=== PATIENT | female | born 1990 | race Caucasian/White ===

== ENCOUNTER 2017-03-07 19:14 | Emergency (ER) | payer MEDICAID, OTHER ==
[~2017-03-07] VITALS: Ht 162.6 cm; Wt 67.0 kg
[~2017-03-07 19:14] MED LIST: COLE625T2 PO; PREN1TAB49 PO; URSO300C3 PO
[2017-03-07 19:18] VITALS: Ht 162.6 cm; Wt 67.0 kg
[2017-03-07] MEDS ORDERED: ACETAMINOPHEN 325 MG TAB PO STA (20:12)
[2017-03-07] MEDS ORDERED: ONDANSETRON 4 MG INJ IV STA (20:12)
[2017-03-07] MEDS ORDERED: SOD CHLORIDE 0.9% 1,000 ML IV STA (20:12)
--- NOTE | 2017-03-07 20:15 | ERD ---
ER Documentation Chief Complaint Date/Time DATE: 03/07/17 TIME: 20:10 Chief Complaint 8 weeks , pelvic pain radaditing to back today, coughx 4 days HPI This pleasant 26-year-old female presents to the emergency department today for nausea, vomiting, and diarrhea. Patient reports fever, states that she has not been able to keep any liquid or food down all day. Patient is 8 weeks , reports low pelvic pain, with cramps, denies vaginal discharge, bleeding, or dysuria. Patient reports history of miscarriages, has 1 live that was delivered early for complications. [id number] ROS All systems reviewed and are negative except as per history of present illness. Medications Home Meds Reported Medications Ursodiol* (Ursodiol*) 300 Mg Capsule, 300 MG PO 11/19/11 Colesevelam Hcl* (Welchol*) 625 Mg Tablet, 625 MG PO TID, #3 11/19/11 Vits W-Ca,Fe,Fa(<1MG) () 1 Tab Tablet, 1 TAB PO 11/19/11 Allergies Allergies: Coded Allergies: sulfamethoxazole (Verified Allergy, Unknown, 03/07/17) trimethoprim (Verified Allergy, Unknown, 03/07/17) PMhx/Soc Medical and Surgical Hx: pt denies Medical Hx, pt denies Surgical Hx Hx Alcohol Use: No Hx Substance Use: No Hx Tobacco Use: No Physical Exam Vitals Vital Signs Date Time Temp Pulse Resp B/P Pulse Ox O2 Delivery O2 Flow Rate FiO2 03/07/17 19:18 101.9 131 20 141/86 98 Physical Exam Const: No acute distress Head: Atraumatic Eyes: Normal Conjunctiva, PERRLA, EOMI ENT: Normal External Ears, Nose and Mouth. Neck: Full range of motion Resp: Chest rise and fall symmetrically, clear to auscultation bilaterally, no respiratory distress Cardio: Regular rate and rhythm, no murmurs, S1, S2, no S3, S4 Abd: Soft, non tender, non distended. Normal bowel sounds, right CVA Skin: Back: Right flank tenderness Ext: Neur: Awake and alert Psych: Normal Mood and Affect Result Diagram: 03/07/172117 Results 24 hrs Laboratory Tests Test 03/07/17 21:18 03/07/17 21:20 White Blood Count 11.710^3/ul Red Blood Count 5.0910^6/ul Hemoglobin 15.1g/dl Hematocrit 44.6% Mean Corpuscular Volume 87.6fl Mean Corpuscular Hemoglobin 29.7pg Mean Corpuscular Hemoglobin Concent 33.9g/dl Red Cell Distribution Width 13.5% Platelet Count 56344^3/UL Mean Platelet Volume 11.1fl Neutrophils % 88.5% Lymphocytes % 6.8% Monocytes % 4.3% Eosinophils % 0.0% Basophils % 0.1% Nucleated Red Blood Cells % 0.0/100WBC Neutrophils # 10.410^3/ul Lymphocytes # 0.810^3/ul Monocytes # 0.510^3/ul Eosinophils # 0.010^3/ul Basophils # 0.010^3/ul Nucleated Red Blood Cells # 0.010^3/ul Urine Color LT. YELLOW Urine Clarity CLEAR Urine pH 6.0 Urine Specific [place] <=1.005 Urine Ketones 15 Urine Nitrite NEGATIVE Urine Bilirubin NEGATIVE Urine Urobilinogen 0.2 E.U./dL Urine Leukocyte Esterase NEGATIVE Urine Hemoglobin NEGATIVE Urine Glucose NEGATIVE% Urine Total Protein NEGATIVE Current Medications Medications (Trade) Dose Ordered Sig/Mika Route PRN Reason Start Time Stop Time Status Last Admin Dose Admin Sodium Chloride (NS) 1,000 ml @ 1,000 mls/hr Q1H STAT IV 03/07/17 20:12 03/07/17 21:11 DC 03/07/17 20:50 Acetaminophen (Tylenol Tab) 650 mg ONCE STAT PO 03/07/17 20:12 03/07/17 20:16 DC 03/07/17 20:49 Ondansetron HCl (Zofran Inj) 4 mg ONCE STAT IV 03/07/17 20:12 03/07/17 20:16 DC 03/07/17 20:49 Interpretation text CBC shows no evidence of hemorrhage or acute infection Urinalysis without leukocytosis, nitrates, or microscopic hematuria Procedures/MDM PROCEDURE: US OB. CLINICAL INDICATION: Pelvic pain in a 26-year-old female. TECHNIQUE: Transabdominal and transvaginal views of the pelvis are available for review. COMPARISON: No. FINDINGS: The uterus measures 13.2 cm sagittal by 6.6 cm AP by 7.6 cm transverse. Uterus contains a gestational sac. The mean sac diameter is 2 cm which calculates out to 6 weeks 6 days. Placenta: Circumferential. The yolk sac is identified.. Presentation: Mobile. [place]-rump length: The crown-rump length is 1.0 cm: 7 weeks 1 day. heart rate: 168 beats per minute. Amniotic fluid volume: Normal. Ultrasound estimated gestational age: The left ovary measures 3.6 x 2.3 x 3.7 cm with normal blood flow. The right ovary measures 4 x 2.7 x 3.6 cm and is normal blood flow and Doppler imaging. No ovarian or adnexal mass lesion is seen. There is no free fluid. IMPRESSION: 1. A single viable fetus is identified. AUA: 7 weeks 0 days was are -3 days.. 2. CHICO (AUA): October 24, 2017. 3. No abnormal adnexal mass is identified. 3. The ovaries are normal. Physician Eliezer Date Time Electronically viewed and signed by Gumaro Ordaz Physician on 03/07/2017 20:48 This pleasant 26-year-old female presenting to emergency department today with nausea, fever, and abdominal pain, without vaginal bleeding. Patient is a weeks , differential diagnosis includes but not limited to threatened miscarriage, urinary tract infection, pyelonephritis. Urinalysis negative for evidence of infection, no leukocytosis or nitrates, WBC is mildly elevated at 11.7 this is not an abnormal finding in no acute infection is suspected. Transabdominal ultrasound impression single viable fetus is identified a UA; 7 weeks 0 days. Estimated due date October 24, 2017. No abnormal adnexal mass is identified. The ovaries are normal. She treated with a liter of normal saline, Zofran, and Tylenol in emergency department, is able to pass fluid challenge prior to discharge. Patient will be discharged home with Zofran, Tylenol, and teaching. Likely viral gastroenteritis. Increase fluids, increase rest, return to emergency department for abdominal pain, abdominal bleeding, inability to tolerate food or fluid. I feel the patient is stable for discharge at this time and outpatient management by primary care physician. I have discussed results, examination findings, the treatment plan with the patient and family present prior to discharge. Indications for emergent reevaluation, side effects of medication were also discussed. All questions were answered. Patient verbalizes understanding and agrees with plan of care. Departure Diagnosis: Primary Impression: Nausea and vomiting in Additional Impression: Diarrhea Diarrhea type: unspecified type Qualified Code: R19.7 - Diarrhea, unspecified type Condition: Good Patient Instructions: Self-Care for Vomiting and Diarrhea Additional Instructions: Thank you for for coming to [facility] for your care today. Please ask your nurse or provider if you have questions about your care today and do not leave until all your questions have been answered. Please use any medications given as directed and follow-up with your doctor (or the doctor you were referred to) in the next 2-3 days. If you do not have a primary care doctor you may follow up at the [facility] (listed below). You may also use motrin and tylenol as needed for fever and/or pain unless instructed otherwise by your provider or nurse. Indications for more urgent follow-up have been discussed, but you may return to the Emergency Department at ANY time for any worrisome or worsening symptoms. If you have abdominal pain, please know that no test or exam you received is perfect and you should follow up within 8 hours for continued pain. If you had any imaging studies today, such as an X-Ray or CT Scan, these studies will be reviewed later by a radiologist. You will be called if there are important findings that were not identified today, so make sure the contact information you provided at registration is correct. If you received any narcotic pain control medicine today, such as Vicodin, Morphine or Dilaudid, your coordination and judgment may be affected for a number of hours. Please do not drive or operate heavy machinery, and you may want someone to assist you at home. If you were given a prescription for narcotic medication, be aware that it is very addictive- use sparingly and only if necessary. MELI RUSS March 07, 2017 20:15
--- NOTE | 2017-03-07 20:48 | RADRPT ---
PROCEDURE: US OB. CLINICAL INDICATION: Pelvic pain in a 26-year-old female. TECHNIQUE: Transabdominal and transvaginal views of the pelvis are available for review. COMPARISON: No. FINDINGS: The uterus measures 13.2 cm sagittal by 6.6 cm AP by 7.6 cm transverse. Uterus contains a gestation al sac. The mean sac diameter is 2 cm which calculates out to 6 weeks 6 days. Placenta: Circumferential. The yolk sac is identified.. Presentation:Mobile. [place]-rump length:The crown-rump length is 1.0 cm: 7 weeks 1 day. heart rate:168 beats per minute. Amniotic fluid volume: Normal. Ultrasound estimated gestational age: The left ovary measures 3.6 x 2.3 x 3.7 cm with normal blood flow. The right ovary measures 4 x 2.7 x 3.6 cm and is normal blood flow and Doppler imaging. No ovarian or adnexal mass lesion is seen. There is no free fluid. IMPRESSION: 1. A single viable fetus is identified. AUA: 7 weeks 0 days was are -3 days.. 2. CHICO (AUA): October 24, 2017. 3. No abnormal adnexal mass is identified. 3. The ovaries are normal. RPTAT:AAJJ Physician Eliezer Date Time Electronically viewed and signed by Physician Eliezer on 03/07/2017 20:48 ARIES/
[2017-03-07 22:04] LABS: ADD SCAN DIFF NO
[2017-03-07 22:06] LABS: BASOPHILS % 0.1 % (0.0-2.0); HEMATOCRIT 44.6 % (37.0-47.0); HEMOGLOBIN 15.1 g/dl (12.0-16.0); LYMPHOCYTES # 0.8 10^3/ul (0.8-2.9); LYMPHOCYTES % 6.8 % (15.0-51.0); MEAN CORPUSCULAR HEMOGLOBIN 29.7 pg (29.0-33.0); MEAN CORPUSCULAR HGB CONC 33.9 g/dl (32.0-37.0); MEAN CORPUSCULAR VOLUME 87.6 fl (82.0-101.0); MEAN PLATELET VOLUME 11.1 fl (7.4-10.4); MONOCYTE # 0.5 10^3/ul (0.3-0.9); MONOCYTES % 4.3 % (0.0-11.0); NEUTROPHIL # 10.4 10^3/ul (1.6-7.5); NEUTROPHILS % 88.5 % (39.0-77.0); PLATELET COUNT 242 10^3/UL (140-415); RED BLOOD COUNT 5.09 10^6/ul (4.20-5.40); RED CELL DISTRIBUTION WIDTH 13.5 % (11.5-14.5); WHITE BLOOD COUNT 11.7 10^3/ul (4.8-10.8)
[2017-03-07 22:11] LABS: ADD UMIC NO; URINE BILIRUBIN (Dip) NEGATIVE (NEGATIVE); URINE BLOOD (Dip) NEGATIVE (NEGATIVE); URINE COLOR LT. YELLOW (YELLOW); URINE GLUCOSE (Dip) NEGATIVE (NEGATIVE); URINE KETONES (Dip) 15 (NEGATIVE); URINE LEUKOCYTE ESTERASE (Dip) NEGATIVE (NEGATIVE); URINE NITRITE (Dip) NEGATIVE (NEGATIVE); URINE TOTAL PROTEIN (Dip) NEGATIVE (NEGATIVE); URINE UROBILINOGEN (Dip) 0.2 E.U./dL (0.1-1.0)
[2017-03-07] MEDS ORDERED: ONDA4TAB8 PO (22:27)
[2017-03-07 22:51] VITALS: BP 108/58; PULSE 96; RESP 20
== END 2017-03-07 22:53 | disposition home or self-care (01) ==
LOC: FTE 19:14
DX: O21.9 Vomiting of pregnancy, unspecified (principal); O99.89 Other specified diseases and conditions complicating pregnancy, childbirth and the puerperium; R19.7 Diarrhea, unspecified; R10.2 Pelvic and perineal pain; Z3A.01 Less than 8 weeks gestation of pregnancy
CPT/HCPCS: 36415; 76801; 81003; 85025; 96374; J2405; J7030; Z7502; Z7610

== ENCOUNTER 2017-04-18 14:35 | Emergency (ER) | payer OTHER ==
[~2017-04-18] VITALS: Ht 170.2 cm; Wt 91.5 kg
[~2017-04-18 14:35] MED LIST changes: +ONDA4TAB8 PO
[2017-04-18 14:39] VITALS: Ht 170.2 cm; Wt 91.5 kg
--- NOTE | 2017-04-18 15:13 | RADRPT ---
PROCEDURE: US OB. CLINICAL INDICATION: Vaginal bleeding TECHNIQUE: Transabdominal views of the pelvis are available for review. COMPARISON: No prior studies are available for comparison. FINDINGS: There is a single intrauterine gestation with the crown-rump length measuring 7.8 cm, corresponding to a gestational age of 13 weeks and 6 days. The heart rate is noted at 150 bpm. The placenta is right lateral. There is no evidence of placenta previa or abruption. The right ovary was not seen. The left ovary measures 2.7 x 2.1 x 2.2 cm. There is no free fluid. RPTAT: AA IMPRESSION: Single live intrauterine with an estimated gestational age of 13 weeks and 6 days, based o n ultrasound measurements. CHICO based on ultrasound measurements is 10/18/17. .Malachi Sandoval MD, Date Time Electronically viewed and signed by .Malachi Sandoval MD, MD on 04/18/2017 15:13 .S/
[2017-04-18 16:13] LABS: ADD SCAN DIFF NO
[2017-04-18 16:17] LABS: BASOPHILS % 0.2 % (0.0-2.0); EOSINOPHILS # 0.1 10^3/ul (0.0-0.5); EOSINOPHILS % 1.2 % (0.0-7.0); HEMATOCRIT 38.8 % (37.0-47.0); HEMOGLOBIN 13.4 g/dl (12.0-16.0); LYMPHOCYTES # 1.4 10^3/ul (0.8-2.9); LYMPHOCYTES % 15.9 % (15.0-51.0); MEAN CORPUSCULAR HEMOGLOBIN 29.8 pg (29.0-33.0); MEAN CORPUSCULAR HGB CONC 34.5 g/dl (32.0-37.0); MEAN CORPUSCULAR VOLUME 86.2 fl (82.0-101.0); MEAN PLATELET VOLUME 9.9 fl (7.4-10.4); MONOCYTE # 0.6 10^3/ul (0.3-0.9); MONOCYTES % 6.2 % (0.0-11.0); NEUTROPHIL # 6.8 10^3/ul (1.6-7.5); NEUTROPHILS % 76.1 % (39.0-77.0); PLATELET COUNT 264 10^3/UL (140-415); RED CELL DISTRIBUTION WIDTH 14.2 % (11.5-14.5)
[2017-04-18 16:29] LABS: ADD UMIC YES; UR ASCORBIC ACID 40 mg/dL (NEGATIVE); UR BILIRUBIN (Dip) NEGATIVE (NEGATIVE); UR BLOOD (Dip) NEGATIVE (NEGATIVE); UR CLARITY SLIGHTLY CLOUDY (CLEAR); UR COLOR YELLOW (YELLOW); UR GLUCOSE (Dip) NEGATIVE (NEGATIVE); UR KETONES (Dip) NEGATIVE (NEGATIVE); UR LEUKOCYTE ESTERASE (Dip) TRACE Leu/ul (NEGATIVE); UR MUCUS FEW /HPF (NONE SEEN); UR NITRITE (Dip) NEGATIVE (NEGATIVE); UR RBC 2 /HPF (0-5); UR SPECIFIC GRAVITY (Dip) 1.029 (1.003-1.030); UR SQUAMOUS EPITHELIAL CELL MODERATE /HPF (FEW); UR TOTAL PROTEIN (Dip) NEGATIVE (NEGATIVE); UR UROBILINOGEN (Dip) NEGATIVE (NEGATIVE)
--- NOTE | 2017-04-18 17:06 | ERD ---
ER Documentation Chief Complaint Date/Time DATE: 04/18/17 TIME: 17:04 Chief Complaint vaginal bleeding x this am denies pain 13 weeks HPI This 26-year-old feel complains of some vaginal spotting since this morning. She denies any fevers, vomited she's had some possibly some very mild crampy pain. She denies a dysuria. ROS All systems reviewed and are negative except as per history of present illness. Medications Home Meds Active Scripts Ondansetron Hcl* (Zofran*) 4 Mg Tablet, 4 MG PO Q6H for NAUSEA AND/OR VOMITING, #12 TAB Prov:PETRONAMELI 03/07/17 Reported Medications Ursodiol* (Ursodiol*) 300 Mg Capsule, 300 MG PO 11/19/11 Colesevelam Hcl* (Welchol*) 625 Mg Tablet, 625 MG PO TID, #3 11/19/11 Vits W-Ca,Fe,Fa(<1MG) () 1 Tab Tablet, 1 TAB PO 11/19/11 Allergies Allergies: Coded Allergies: sulfamethoxazole (Verified Allergy, Unknown, 04/18/17) trimethoprim (Verified Allergy, Unknown, 03/07/17) PMhx/Soc Medical and Surgical Hx: pt denies Medical Hx, pt denies Surgical Hx History of Surgery: No Anesthesia Reaction: No Hx Neurological Disorder: No Hx Respiratory Disorders: No Hx Cardiac Disorders: No Hx Psychiatric Problems: No Hx Alcohol Use: No Hx Substance Use: No Hx Tobacco Use: No Smoking Status: Never smoker Physical Exam Vitals Vital Signs Date Time Temp Pulse Resp B/P Pulse Ox O2 Delivery O2 Flow Rate FiO2 04/18/17 14:39 99.2 99 18 132/78 97 Physical Exam Const: [] Alert, not ill-appearing. Head: Atraumatic Eyes: Normal Conjunctiva ENT: Normal External Ears, Nose and Mouth. Neck: Full range of motion..~ No meningismus. Resp: Clear to auscultation bilaterally Cardio: Regular rate and rhythm, no murmurs Abd: Soft, non tender, non distended. Normal bowel sounds Skin: No petechiae or rashes Back: No midline or flank tenderness Ext: No cyanosis, or edema Neur: Awake and alert Psych: Normal Mood and Affect Result Diagram: 04/18/17 1600 Results 24 hrs Laboratory Tests Test 04/18/17 15:45 04/18/17 16:00 Urine Color YELLOW Urine Clarity SLIGHTLY CLOUDY Urine pH 6.0 Urine Specific [place] 1.029 Urine Ketones NEGATIVEmg/dL Urine Nitrite NEGATIVEmg/dL Urine Bilirubin NEGATIVEmg/dL Urine Urobilinogen NEGATIVEmg/dL Urine Leukocyte Esterase TRACELeu/ul Urine Microscopic RBC 2/HPF Urine Microscopic WBC 7/HPF Urine Squamous Epithelial Cells MODERATE/HPF Urine Mucus FEW/HPF Urine Hemoglobin NEGATIVEmg/dL Urine Glucose NEGATIVEmg/dL Urine Total Protein NEGATIVEmg/dl White Blood Count 9.010^3/ul Red Blood Count 4.5010^6/ul Hemoglobin 13.4g/dl Hematocrit 38.8% Mean Corpuscular Volume 86.2fl Mean Corpuscular Hemoglobin 29.8pg Mean Corpuscular Hemoglobin Concent 34.5g/dl Red Cell Distribution Width 14.2% Platelet Count 07885^3/UL Mean Platelet Volume 9.9fl Neutrophils % 76.1% Lymphocytes % 15.9% Monocytes % 6.2% Eosinophils % 1.2% Basophils % 0.2% Nucleated Red Blood Cells % 0.0/100WBC Neutrophils # 6.810^3/ul Lymphocytes # 1.410^3/ul Monocytes # 0.610^3/ul Eosinophils # 0.110^3/ul Basophils # 0.010^3/ul Nucleated Red Blood Cells # 0.010^3/ul Procedures/MDM Pelvic ultrasound shows 13 week intrauterine possibly a heart tones with no acute abnormalities. Urine shows positive leukocyte esterase and 10 white blood cells but many squamous epithelial cells. Patient is Rh+. Patient presents with vaginal spotting for one day without evidence of ectopic , septic , sepsis, acute abdomen, signs of appendicitis. We will defer treatment for UTI given absences of symptoms. Patient discharged home with OB and primary care follow-up. The patient was stable with no new complaints during the ER course. Clinically, there is no current evidence to suggest meningitis, sepsis, acute abdomen, pneumonia, acute coronary syndrome, pulmonary embolism, or any other emergent condition appearing to require further evaluation or hospitalization. The patient should certainly return for any new or worsening symptoms per the aftercare instructions. They should otherwise follow-up with her primary care doctor for reevaluation this week. Departure Diagnosis: Primary Impression: Vaginal bleeding in patient at less than 20 weeks ges... Condition: Stable Patient Instructions: Bleeding During Early Additional Instructions: Examinations normal today. Recheck with primary doctor or return for worsening pain, fevers, bleeding, new or worsening symptoms. CHICO URBIO MD Apr 18, 2017 17:06
== END 2017-04-18 17:24 | disposition home or self-care (01) ==
LOC: FTE 14:35
DX: O20.9 Hemorrhage in early pregnancy, unspecified (principal); Z3A.13 13 weeks gestation of pregnancy
CPT/HCPCS: 36415; 76801; 81001; 84702; 85025; 86900; 86901; Z7502

== ENCOUNTER 2017-08-06 17:04 | Outpatient (CLI) | payer OTHER ==
[~2017-08-06] VITALS: Ht 170.2 cm; Wt 96.7 kg
--- NOTE | 2017-08-06 17:24 | RADRPT ---
PROCEDURE: Obstetrical ultrasound for biophysical profile CLINICAL INDICATION: Biophysical profile. . TECHNIQUE: Obstetrical ultrasound of the uterus for biophysical profile. Transabdominal views are obtained. COMPARISON: 06/17/2017 FINDINGS: Single intrauterine gestation. Presentation: Cephalic. Placenta: Posterior No evidence of placental abruption. No evidence of placenta previa. breathing movement = 2/2 tone = 2/2 motion = 2/2 RELL = 2/2 RELL = 13.0 cm heart rate: 152 beats per minute IMPRESSION: Single intrauterine gestation. Biophysical profile 05/20 RPTAT: AADD .Yang Jones MD, MD Date Time Electronically viewed and signed by .Yang Jones MD, on 08/06/2017 17:23 .B/
[2017-08-06 17:37] VITALS: BP 118/61; PULSE 78; RESP 18; Ht 170.2 cm; Wt 96.7 kg
--- NOTE | 2017-08-06 17:53 | PN ---
Triage Information Date/Time August 06, 2017 Reason for visit: DFM (17 at 29 weeks with decreased movement) Weeks of Gestation 29 week /Para 4 para 1 History of demise at 36 weeks Diabetes: none Hypertention: none Additional information Sent him because of decreased movement at 29 weeks She has history of demise at 36 weeks Objective Vital Signs Date Time Temp Pulse Resp B/P Pulse Ox O2 Delivery O2 Flow Rate FiO2 08/06/17 17:37 98.6 78 18 118/61 Room Air Heart Rate: 140's Heart Rate Comments Reactive Contractions: None Exam Deferred Results/Medications Imaging Results Single intrauterine gestation. Biophysical profile 05/20 Disposition: Discharge Assessment/Plan Home with kick counts recommendations Will start antepartum testing at 32 weeks SHANTELL NARANJO MD Aug 06, 2017 17:53
--- NOTE | 2017-08-06 18:19 | TRIAGE ---
OB Triage Datetime Report Generated by CPN: 08/06/2017 18:19 Datetime: 08/06/2017 18:00 Stage of : OB Triage Maternal Assessment Level of Consciousness: Fully Conscious Labor Evaluation Frequency: NONE Monitor Mode: External Resting Tone [place]: Relaxed Heart Rate FHR Baseline Rate: 135 Monitor Mode: External US Variability: Moderate 6-25 bpm Accelerations: 15X15 Decelerations: None Category: Category I Pain Assessment Pain Scale: 0 Pain Goal: 3 Vaginal Exam Membrane Status: Intact Vaginal Bleeding: None Datetime: 08/06/2017 17:34 Assessment Type: Triage Maternal Assessment Level of Consciousness: Fully Conscious DTR's/Clonus: DTRs 2+; No Clonus Headache: Denies Blurred Vision: No Respiratory Effort: Unlabored; Regular Rhythm; Equal Expansion Breath Sounds, Left: Clear and Equal Breath Sounds, Right: Clear and Equal Nausea/Vomiting: Denies RUQ Epigastric Pain: Denies Lower Extremities Edema: None Degree: None Upper Extremities Edema: None Degree: None Facial Edema: None Fall Risk Assessment History of Falling: (0) No Secondary Diagnosis: (0) No Ambulatory Aid: (0) Bedrest/Nurse Assist IV Therapy: (0) No Gait: (0) Normal/Bedrest/Immobile Mental Status: (0) Oriented to Own Ability Fall Score: 0 Fall Risk Score Definition: No Risk: No action required Datetime: 08/06/2017 17:30 Time of Arrival: 08/06/2017 16:49 EGA: 29.0 Arrived By: Ambulatory Arrived From: Home Chief Complaint: C/O DFM Movement: Present Contractions: Denies/Absent Rupture of Membranes: Denies Vaginal Bleeding: None Vaginal Discharge: Denies Recent Sexual Intercouse: Denies Abdominal Trauma: Not Applicable Patient Complaints: None Time Provider Notified: 08/06/2017 17:30 Provider Notified: REFUGIO Initial Plan: NST/BPP Datetime: 08/06/2017 17:07 Monitor Mode: External Monitor Mode: External US
== END 2017-08-06 18:10 | disposition home or self-care (01) ==
LOC: OBT 17:04 → L-D 17:05 → OBT 18:10
PROVIDERS: ATTEND Obstetrics & Gynecology
DX: O36.8130 Decreased fetal movements, third trimester, not applicable or unspecified (principal); Z3A.29 29 weeks gestation of pregnancy
CPT/HCPCS: 76818; Z7500; G0463

== ENCOUNTER 2017-09-03 17:30 | Outpatient (CLI) | payer OTHER ==
[~2017-09-03] VITALS: Ht 170.2 cm; Wt 98.6 kg
[~2017-09-03 17:30] MED LIST changes: -COLE625T2 PO; -ONDA4TAB8 PO; -URSO300C3 PO
[2017-09-03 18:21] VITALS: Ht 170.2 cm; Wt 98.6 kg
[2017-09-03 19:09] LABS: ADD UMIC YES; UR ASCORBIC ACID NEGATIVE (NEGATIVE); UR BILIRUBIN (Dip) NEGATIVE (NEGATIVE); UR BLOOD (Dip) 2+ mg/dL (NEGATIVE); UR CLARITY SLIGHTLY CLOUDY (CLEAR); UR COLOR YELLOW (YELLOW); UR GLUCOSE (Dip) NEGATIVE (NEGATIVE); UR KETONES (Dip) NEGATIVE (NEGATIVE); UR LEUKOCYTE ESTERASE (Dip) 1+ Leu/ul (NEGATIVE); UR NITRITE (Dip) NEGATIVE (NEGATIVE); UR RBC 1 /HPF (0-5); UR SPECIFIC GRAVITY (Dip) 1.017 (1.003-1.030); UR SQUAMOUS EPITHELIAL CELL MODERATE /HPF (FEW); UR TOTAL PROTEIN (Dip) NEGATIVE (NEGATIVE); UR UROBILINOGEN (Dip) NEGATIVE (NEGATIVE)
--- NOTE | 2017-09-03 19:46 | RADRPT ---
PROCEDURE: US OB. CLINICAL INDICATION: Decreased movement TECHNIQUE: Pelvic ultrasound performed for biophysical profile. COMPARISON: 08/06/2017 FINDINGS: Single intrauterine gestation present with heart rate at 112 beats per minute. Presentation is ceph alic. Placenta is posterior, grade I. Biophysical profile score is 8/8 (breathing=2, movement=2, t one =2, fluid volume=2). Amniotic fluid volume is within normal limits, with RELL = 9.2 cm. RPTAT:HJJR IMPRESSION: 1. Biophysical profile score 8/8. 3. Amniotic fluid index now estimated at 9.2 cm, previously 13.1 cm on the study of 08/06/2017. Physician Eveline Date Time Electronically viewed and signed by Ignacio Sauceda Physician on 09/03/2017 19:45 JR/
--- NOTE | 2017-09-03 20:29 | TRIAGE ---
OB Triage Datetime Report Generated by CPN: 09/03/2017 20:29 Datetime: 09/03/2017 20:27 Stage of : OB Triage Datetime: 09/03/2017 20:21 Labor Evaluation Frequency: 0 Monitor Mode: External Duration (sec)2399: 0 Pattern: Normal: <= 5 Contractions in 10 Minutes Heart Rate FHR Baseline Rate: 120 Monitor Mode: External US FHR Baseline Changes: No Baseline Change Variability: Moderate 6-25 bpm Decelerations: Variable Datetime: 09/03/2017 19:42 Stage of : OB Triage Maternal Assessment Level of Consciousness: Fully Conscious Headache: Denies Blurred Vision: No Respiratory Effort: Unlabored; Regular Rhythm; Equal Expansion Nausea/Vomiting: Denies RUQ Epigastric Pain: Denies Facial Edema: None Fall Risk Assessment History of Falling: (0) No Secondary Diagnosis: (0) No Ambulatory Aid: (0) Bedrest/Nurse Assist IV Therapy: (0) No Gait: (0) Normal/Bedrest/Immobile Mental Status: (0) Oriented to Own Ability Fall Score: 0 Fall Risk Score Definition: No Risk: No action required Datetime: 09/03/2017 19:00 Labor Evaluation Frequency: OCC Monitor Mode: External Quality: Mild Pattern: Normal: <= 5 Contractions in 10 Minutes Resting Tone [place]: Relaxed Heart Rate FHR Baseline Rate: 135 Monitor Mode: External US FHR Baseline Changes: No Baseline Change Variability: Moderate 6-25 bpm Accelerations: 15X15 Decelerations: None Category: Category I Pain Assessment Pain Presence: None/Denies Datetime: 09/03/2017 18:10 Monitor Mode: External Resting Tone [place]: Relaxed Heart Rate FHR Baseline Rate: 130 Monitor Mode: External US FHR Baseline Changes: No Baseline Change Variability: Moderate 6-25 bpm Accelerations: 15X15 Decelerations: None Category: Category I Pain Assessment Pain Presence: None/Denies Datetime: 09/03/2017 17:30 Assessment Type: Triage Maternal Assessment Level of Consciousness: Fully Conscious DTR's/Clonus: DTRs 2+; No Clonus Headache: Denies Blurred Vision: No Respiratory Effort: Unlabored; Regular Rhythm; Equal Expansion Breath Sounds, Left: Clear and Equal Breath Sounds, Right: Clear and Equal Nausea/Vomiting: Denies RUQ Epigastric Pain: Denies Lower Extremities Edema: Bilateral Lower Extremities Degree: 1+ Upper Extremities Edema: None Degree: None Facial Edema: None Fall Risk Assessment History of Falling: (0) No Secondary Diagnosis: (0) No Ambulatory Aid: (0) Bedrest/Nurse Assist IV Therapy: (0) No Gait: (0) Normal/Bedrest/Immobile Mental Status: (0) Oriented to Own Ability Fall Score: 0 Fall Risk Score Definition: No Risk: No action required Datetime: 09/03/2017 09:06 Time of Arrival: 09/03/2017 17:17 EGA: 33.0 Arrived By: Ambulatory Arrived From: Office Chief Complaint: light red bleeding when wiping after using BR Movement: Present Contractions: Denies/Absent Rupture of Membranes: Denies Vaginal Bleeding: Normal Show Vaginal Discharge: Present Recent Sexual Intercouse: Denies Abdominal Trauma: Not Applicable Patient Complaints: Other Time Provider Notified: 09/03/2017 18:05 Provider Notified: Ze Initial Plan: NST, BPP/RELL, Speculum exam, UA, Urine Culture Datetime: 08/06/2017 17:34 Fall Score: 0 Fall Risk Score Definition: No Risk: No action required Datetime: 08/06/2017 17:30 EGA: 29.0
--- NOTE | 2017-09-03 21:25 | PN ---
Triage Information Date/Time Reason for visit: Weeks of Gestation 33 weeks /Para Diabetes: none Hypertention: none Additional information Patient Name: Rosalia Cavazos Unit Number: [id number] Date of : 1990 Patient Status: Registered Recurring Attending Doctor: Rachael Aguero MD OB Triage Triage Information Date/Time September 03, 2017 Reason for visit: Weeks of Gestation 33 weeks /Para 4 para 1 Diabetes: none Hypertention: none Additional information 26-year-old with IUP at 33 weeks presented with complaint of urinary frequency and scant spotting and bleeding after urination when she wipes herself. She denies any nausea vomiting, fever or chills, reports has feeling some dry vagina and urinary frequency. Denies any decreased movement, uterine contractions. Objective Heart Rate: 130's Heart Rate Comments Category 1 Contractions: None Exam General appearance: Alert and oriented 4. Does not appear to be in any acute distress Abdomen: Soft, gravid, fundal height consistent with gestational age. No abdominal tenderness, no rebound tenderness, no guarding no rigidity No suprapubic tenderness Speculum examination: Cervix appears to be closed and long. No blood in the vault. Results/Medications Imaging Results PROCEDURE: US OB. CLINICAL INDICATION: Decreased movement TECHNIQUE: Pelvic ultrasound performed for biophysical profile. COMPARISON: 08/06/2017 FINDINGS: Single intrauterine gestation present with heart rate at 112 beats per minute. Presentation is cephalic. Placenta is posterior, grade I. Biophysical profile score is 8/8 (breathing=2, movement=2, tone =2, fluid volume=2). Amniotic fluid volume is within normal limits, with RELL = 9.2 cm. RPTAT:HJJR IMPRESSION: 1. Biophysical profile score 8/8. 3. Amniotic fluid index now estimated at 9.2 cm, previously 13.1 cm on the study of 08/06/2017. Disposition: Discharge Assessment/Plan IUP at 33 weeks Urinary frequency and bleeding after urination UA consistent with UTI No evidence of labor or PPROM or Pyelo Results discussed with the patient Urine was sent for culture and sensitivity The patient regarding antibiotics for 7 days. Efflux prescribed 4 times daily 500 mg Follow-up with OB clinic within 24-48 hours Adequate p.o. hydration Patient verbalized understanding plan of care Copies To: Copies To: KONSTANTIN HALL MD Sep 03, 2017 21:09 Results/Medications Results 24 hrs Laboratory Tests Test 09/03/17 18:15 Urine Color YELLOW Urine Clarity SLIGHTLY CLOUDY A Urine pH 5.0 Urine Specific [place] 1.017 Urine Ketones NEGATIVE Urine Nitrite NEGATIVE Urine Bilirubin NEGATIVE Urine Urobilinogen NEGATIVE Urine Leukocyte Esterase 1+ H Urine Microscopic RBC 1 Urine Microscopic WBC 8 H Urine Squamous Epithelial Cells MODERATE Urine Hemoglobin 2+ H Urine Glucose NEGATIVE Urine Total Protein NEGATIVE KONSTANTIN HALL MD Sep 03, 2017 21:25
== END 2017-09-03 20:30 | disposition home or self-care (01) ==
LOC: OBT 17:30 → L-D 17:32 → OBT 20:30
PROVIDERS: ATTEND Obstetrics & Gynecology
DX: O23.43 Unspecified infection of urinary tract in pregnancy, third trimester (principal); O46.93 Antepartum hemorrhage, unspecified, third trimester; Z3A.33 33 weeks gestation of pregnancy
CPT/HCPCS: 76818; 81001; 87086; G0463

== ENCOUNTER 2017-09-26 17:13 | Outpatient (CLI) | payer OTHER ==
[~2017-09-26] VITALS: Ht 170.2 cm; Wt 99.1 kg
[2017-09-26 17:22] VITALS: BP 116/67; RESP 18; Ht 170.2 cm; Wt 99.1 kg
--- NOTE | 2017-09-26 18:09 | RADRPT ---
PROCEDURE: OB ultrasound CLINICAL INDICATION: Increase bile acids TECHNIQUE: Multiple transverse and longitudinal OB images of the pelvis were obtained. The images were reviewed on a high-resolution PACS workstation. COMPARISON: 08/06/2017 FINDINGS: A single live intrauterine is seen. The presentation is vertex. The placenta is grade 1-2 and fundal in location. No evidence of placenta abruption or previa is seen. The heart rate i s 138 beats per minute. The amniotic fluid index is 11.7 cm. movement 2 tone 2 breathing 2 Amniotic fluid 2 IMPRESSION: Biophysical profile of 05/20. RPTAT: HPNM Physician Gwendolyn Date Time Electronically viewed and signed by Physician Gwendolyn on 09/26/2017 18:09 /
--- NOTE | 2017-09-26 18:22 | PN ---
Triage Information Date/Time September 26, 2017 Reason for visit: Sent from clinic for daily nondistressed test and biophysical profile until 37 weeks because of cholestasis Weeks of Gestation 36 weeks plus /Para 3 para 1 Diabetes: none Hypertention: none Objective Vital Signs Date Time Temp Pulse Resp B/P Pulse Ox O2 Delivery O2 Flow Rate FiO2 09/26/17 17:22 98.4 18 116/67 Heart Rate: 140's Heart Rate Comments Reactive Contractions: None Exam Deferred Results/Medications Imaging Results Biophysical profile of 05/20. Disposition: Discharge Assessment/Plan Patient would like to have antepartum testing daily until day of induction which appears to be next Friday on October 01 SHANTELL NARANJO MD Sep 26, 2017 18:22
--- NOTE | 2017-09-26 18:39 | TRIAGE ---
OB Triage Datetime Report Generated by CPN: 09/26/2017 18:39 Datetime: 09/26/2017 18:22 Stage of : OB Triage Datetime: 09/26/2017 17:50 Stage of : OB Triage Assessment Type: Triage Maternal Assessment Level of Consciousness: Fully Conscious DTR's/Clonus: DTRs 2+; No Clonus Headache: Denies Blurred Vision: No Respiratory Effort: Unlabored; Regular Rhythm; Equal Expansion Breath Sounds, Left: Clear and Equal Breath Sounds, Right: Clear and Equal Nausea/Vomiting: Denies RUQ Epigastric Pain: Denies Facial Edema: None Temperature Route: Axillary Fall Risk Assessment History of Falling: (0) No Secondary Diagnosis: (0) No Ambulatory Aid: (0) Bedrest/Nurse Assist IV Therapy: (0) No Gait: (0) Normal/Bedrest/Immobile Mental Status: (0) Oriented to Own Ability Fall Score: 0 Fall Risk Score Definition: No Risk: No action required Labor Evaluation Frequency: 0 Monitor Mode: External Resting Tone [place]: Relaxed Heart Rate FHR Baseline Rate: 125 Monitor Mode: External US Variability: Moderate 6-25 bpm Accelerations: 10X10 Decelerations: None Category: Category I Pain Assessment Pain Scale: 0 Pain Presence: None/Denies Pain Type: N/A Pain Goal: 3 Pain Relief Measures: Comfort Measures Datetime: 09/26/2017 17:48 Time of Arrival: 09/26/2017 17:00 EGA: 36.2 Arrived By: Ambulatory Arrived From: Home Chief Complaint: FOLLOW UP DAILY BPP/RELL FOR CHOLESTASIS, SCHEDULED INDUCTION ON 10/01, DENIES BLE EDING, LEAKING OR UC'S Movement: Present Contractions: Denies/Absent Rupture of Membranes: Denies Vaginal Bleeding: None Vaginal Discharge: Denies Recent Sexual Intercouse: Yes Abdominal Trauma: Not Applicable Time Provider Notified: 09/26/2017 18:22 Provider Notified: REFUGIO Initial Plan: MONITOR, BPP/RELL Datetime: 09/03/2017 19:42 Fall Score: 0 Fall Risk Score Definition: No Risk: No action required Datetime: 09/03/2017 17:30 Fall Score: 0 Fall Risk Score Definition: No Risk: No action required Datetime: 09/03/2017 09:06 EGA: 33.0 Datetime: 08/06/2017 17:34 Fall Score: 0 Fall Risk Score Definition: No Risk: No action required Datetime: 08/06/2017 17:30 EGA: 29.0
== END 2017-09-26 18:32 | disposition home or self-care (01) ==
LOC: OBT 17:13 → L-D 17:15 → OBT 18:32
PROVIDERS: ATTEND Obstetrics & Gynecology
DX: O26.613 Liver and biliary tract disorders in pregnancy, third trimester (principal); K83.1 Obstruction of bile duct; Z3A.36 36 weeks gestation of pregnancy
CPT/HCPCS: 76818; Z7500; G0463

== ENCOUNTER 2017-10-01 11:43 | Inpatient (IN) | payer OTHER ==
[~2017-10-01] VITALS: Ht 170.2 cm; Wt 98.8 kg
[2017-10-01] MEDS ORDERED: LACTATED RINGER'S 1,000 ML IV PRN (13:34)
[2017-10-01] MEDS ORDERED: CALC600T24 PO (13:41)
[2017-10-01 13:43] VITALS: Ht 170.2 cm; Wt 98.8 kg
[2017-10-01 13:51] LABS: BASOPHILS % 0.2 % (0.0-2.0); EOSINOPHILS # 0.1 10^3/ul (0.0-0.5); EOSINOPHILS % 0.8 % (0.0-7.0); HEMATOCRIT 39.7 % (37.0-47.0); HEMOGLOBIN 13.7 g/dl (12.0-16.0); LYMPHOCYTES # 1.5 10^3/ul (0.8-2.9); LYMPHOCYTES % 14.3 % (15.0-51.0); MEAN CORPUSCULAR HEMOGLOBIN 30.6 pg (29.0-33.0); MEAN CORPUSCULAR HGB CONC 34.5 g/dl (32.0-37.0); MEAN CORPUSCULAR VOLUME 88.6 fl (82.0-101.0); MEAN PLATELET VOLUME 11.3 fl (7.4-10.4); MONOCYTE # 0.5 10^3/ul (0.3-0.9); NEUTROPHIL # 8.1 10^3/ul (1.6-7.5); NEUTROPHILS % 79.2 % (39.0-77.0); PLATELET COUNT 265 10^3/UL (140-415); RED BLOOD COUNT 4.48 10^6/ul (4.20-5.40); RED CELL DISTRIBUTION WIDTH 12.7 % (11.5-14.5); WHITE BLOOD COUNT 10.3 10^3/ul (4.8-10.8)
[2017-10-01 13:54] LABS: INR 0.9; PARTIAL THROMBOPLASTIN TIME 26.1 Sec (25.0-35.0); PROTIME 12.2 Sec (11.9-14.9)
[2017-10-01] MEDS: LACTATED RINGER'S 1,000 ML IV SCH ×2 (13:59→21:18)
[2017-10-01] MEDS ORDERED: OXYTOCIN 30 UNITS/LR 500 ML IV SCH ×2 (14:00)
[2017-10-01] MEDS ORDERED: BUTORPHANOL 2 MG INJ IV PRN (14:00)
[2017-10-01] MEDS ORDERED: CARBOPROST 250 MCG INJ IM PRN (14:00)
[2017-10-01] MEDS ORDERED: IBUPROFEN 600 MG TAB PO PRN (14:00)
[2017-10-01] MEDS ORDERED: MINERAL OIL LIGHT 10 ML VIAL TOP PRN (14:00)
[2017-10-01] MEDS ORDERED: LIDOCAINE 1% (MPF) 30 ML INJ INJ PRN (14:00)
[2017-10-01] MEDS ORDERED: MISOPROSTOL 200 MCG TAB PR PRN (14:00)
[2017-10-01] MEDS ORDERED: METHYLERGONOVINE 0.2 MG INJ IM PRN (14:00)
[2017-10-01] MEDS ORDERED: OXYTOCIN 30 UNITS/LR 500 ML IV PRN (14:00)
[2017-10-01] MEDS ORDERED: DINOPROSTONE 10 MG VAG SUPP VAG ONE (15:30)
--- NOTE | 2017-10-01 19:12 | HP ---
Date/Time of Note Date/Time of Note DATE: 10/01/17 TIME: 19:08 OB - History Hx of Present Free Text/Dictation 26-year-old female admitted for induction of labor because of cholestasis at 37 weeks Last Menstrual Period: Jan 25, 2017 Estimated Due Date: Oct 22, 2017 : 4 Para: 1 Spontaneous : 1 Therapeutic : 1 Care: Good Care Ultrasounds: Normal mid trimester US Obstetrical Complications: Other (Cholestasis) Medical Complications: None Past Family/Social History * Past Medical, Surgical, Family and Obstetric Histories reviewed from chart. Blood Type: A+ Rubella: immune RPR/VDRL: Negative GBS Status: Unknown HBsAG: Negative OB Admission Exam Physical Exam HEENT: WNL Heart: Rhythm Normal Lungs: Clear, Equal Abdomen: WNL Extremities: Normal Reflexes: Normal Cervical Dilatation: None Effacement: 0% Station: -3 Membranes: Intact Heart Rate: 140's Accelerations: Accelerations Present Decelerations: No Decelerations Varibility: Marked Contractions on Admission: None Last 72 hours Lab Results CBC & BMP 10/01/17 13:00 OB Assessment/Plan Reason for admission: induction of labor Other Assessment: Cholestasis of at 37 weeks Other plan: Induce labor using Cervidil SHANTELL NARANJO MD Oct 01, 2017 19:12
[2017-10-02] MEDS ORDERED: OXYTOCIN 30 UNITS/LR 500 ML IV SCH (05:00)
[2017-10-02] MEDS: LACTATED RINGER'S 1,000 ML IV SCH ×4 (05:08→18:25)
--- NOTE | 2017-10-02 14:02 | PN ---
Date/Time of Note Date/Time of Note DATE: 10/02/17 TIME: 14:01 OB Subjective Subjective Subjective No major complaint of a labor OB Objective Objective Objective Vital signs stable in general physical exam is unchanged Cervix is 50% in 2 3 cm OB Assessment/Plan Reason for admission: induction of labor Other Assessment: Cholestasis of at 37+ weeks Other plan: Continue with Pitocin augmentation SHANTELL NARANJO MD Oct 02, 2017 14:02
[2017-10-02] MEDS ORDERED: FENTAnyl 2MCG/ML-ROPIV 0.2% 100 ML ONE (16:53)
[2017-10-02] MEDS ORDERED: EPHEDrine SULFATE 50 MG/5 ML SYG ONE (17:55)
[2017-10-02] MEDS ORDERED: DIPHENHYDRAMINE 50 MG INJ IV PRN (19:00)
[2017-10-02] MEDS ORDERED: ONDANSETRON 4 MG INJ IV PRN (19:00)
[2017-10-02] MEDS ORDERED: KETOROLAC 30 MG INJ IV PRN (19:00)
[2017-10-02] MEDS ORDERED: HYDROmorphONE 0.5 MG/0.5 ML SYG IV PRN ×2 (19:00)
[2017-10-02] MEDS ORDERED: FENTAnyl 2MCG/ML-ROPIV 0.2% 100 ML BAG EPI SCH (19:00)
[2017-10-02] MEDS ORDERED: NALOXONE (0.4 MG/ML) INJ IV PRN (19:00)
--- NOTE | 2017-10-03 01:50 | LDN ---
Date/Time of Note Date/Time of Note DATE: 10/03/17 TIME: 01:46 Delivery Summary Weeks of Gestation [id number] Placenta Delivered: Spontaneously Meconium: none Episiotomy: No Perineal laceration: 0 Anesthesia type: Epidural Estimated blood loss: 200 Sponge & Needle done & correct: Yes All needle counts correct: Yes Any foreign bodies felt in the: No Problems: Infant Delivery Information Sex Sex: male Apgars 1 Minute: 8 5 Minute: 9 Suctioning Nose & mouth suctioned at janene: Yes Delee suction performed: No Umbilical Cord Umbilical cord with: 3 Vessels Cord presentations: no nuchal cord Cord Blood was obtained: Yes Mother & Baby Disposition Disposition Mom & Baby to Maternity; Good: Yes Mom transferred to: Other Baby to NICU: No () NAIMA ZUÑIGA MD Oct 03, 2017 01:50
[2017-10-03 03:50] VITALS: BP 111/60; PULSE 100; RESP 18
[2017-10-03] MEDS: IBUPROFEN 600 MG TAB PO SCH ×3 (06:48→17:36)
[2017-10-03] MEDS ORDERED: BENZOCAINE 20% 56 ML SPRAY TOP PRN (07:00)
[2017-10-03] MEDS ORDERED: WITCH HAZEL/GLYCERIN PAD PR PRN (07:00)
[2017-10-03] MEDS ORDERED: MISOPROSTOL 200 MCG TAB PR PRN (07:00)
[2017-10-03] MEDS ORDERED: ZOLPIDEM 5 MG TAB PO PRN (07:00)
[2017-10-03] MEDS ORDERED: METHYLERGONOVINE 0.2 MG INJ IM PRN (07:00)
[2017-10-03] MEDS ORDERED: OXYTOCIN 30 UNITS/LR 500 ML IV PRN (07:00)
[2017-10-03] MEDS ORDERED: LANOLIN 7 GM TUBE TOP PRN (07:00)
[2017-10-03] MEDS ORDERED: OXYCODONE/ASPIRIN (4.88/325) TAB PO PRN ×2 (07:00)
[2017-10-03] MEDS ORDERED: CARBOPROST 250 MCG INJ IM PRN (07:00)
[2017-10-03] MEDS ORDERED: LACTATED RINGER'S 1,000 ML IV SCH (07:30)
[2017-10-03] MEDS: OXYTOCIN 30 UNITS/LR 500 ML IV SCH ×2 (07:51→11:52)
[2017-10-03 08:30] VITALS: BP 108/66; PULSE 91; RESP 16
[2017-10-03] MEDS: SENNA/DOCUSATE NA (8.6MG/50MG) TAB PO SCH ×2 (09:24→21:28)
[2017-10-03 11:48] VITALS: BP 113/70; PULSE 72; RESP 18
[2017-10-03 16:00] VITALS: BP 107/65; RESP 18
[2017-10-03 16:04] VITALS: BP 103/56; PULSE 75; RESP 16
--- NOTE | 2017-10-03 17:49 | DS ---
Date/Time of Note Date/Time of Note home next day DATE: 10/03/17 TIME: 17:47 Obstetrical Discharge Record Final Diagnosis Final Diagnosis: Term delivered Other Final Diagnosis S/P vaginal delivery Vaginal Delivery Obstetrical Delivery: Spontaneous Complications Augmentation: Yes Induction: Yes Condition on Discharge Physical Assessment Last Vitals: see nurses notes Voiding: Yes Bowel Movement: Yes Breast: Soft, non-tender, Filling Fundus: Firm Abdomen and Incision: soft BS + fundus: firm Episiotomy: N/A Calf Tenderness: No Patient Condition: Good SHANTELL NARANJO MD Oct 03, 2017 17:49
--- NOTE | 2017-10-03 17:50 | PD.PPDC ---
CENTER ADMINISTRATOR Discharge Instruction Provider Information Physician Information 26 /o female had vaginal delivery Diagnosis Final Diagnosis: S/P vaginal delivery Condition Patient Condition: Good Diet Diet: Resume Regular Diet Activity/Restrictions Activity: Normal Activity May Shower Restrictions: Nothing in the Vagina Return to Work or School: Nov 17, 2017 Follow-up Follow-up with Physician: 4, Week/Weeks (in clinic) Return to clinic for OB Instructions: Breast Tenderness Depression Comment: pelvic rest X 6 weeks SHANTELL NARANJO MD Oct 03, 2017 17:50
[2017-10-03] MEDS ORDERED: IBUP-1542 PO (17:51)
[2017-10-03 20:00] VITALS: BP 120/72; PULSE 74; RESP 18
[2017-10-04] VITALS: BP 111/78; PULSE 74; RESP 18
[2017-10-04] MEDS: IBUPROFEN 600 MG TAB PO SCH ×3 (00:08→12:22)
[2017-10-04 04:00] VITALS: BP 111/68; PULSE 68; RESP 17
[2017-10-04 08:00] VITALS: BP 123/72; PULSE 69; RESP 18
[2017-10-04 09:25] LABS: BASOPHILS % 0.4 % (0.0-2.0); EOSINOPHILS # 0.2 10^3/ul (0.0-0.5); EOSINOPHILS % 1.7 % (0.0-7.0); HEMATOCRIT 41.6 % (37.0-47.0); HEMOGLOBIN 13.5 g/dl (12.0-16.0); LYMPHOCYTES # 2.1 10^3/ul (0.8-2.9); LYMPHOCYTES % 20.6 % (15.0-51.0); MEAN CORPUSCULAR HEMOGLOBIN 30.7 pg (29.0-33.0); MEAN CORPUSCULAR HGB CONC 32.5 g/dl (32.0-37.0); MEAN CORPUSCULAR VOLUME 94.5 fl (82.0-101.0); MEAN PLATELET VOLUME 10.7 fl (7.4-10.4); MONOCYTE # 0.7 10^3/ul (0.3-0.9); NEUTROPHIL # 7.3 10^3/ul (1.6-7.5); NEUTROPHILS % 69.9 % (39.0-77.0); PLATELET COUNT 211 10^3/UL (140-415); RED CELL DISTRIBUTION WIDTH 13.2 % (11.5-14.5); WHITE BLOOD COUNT 10.4 10^3/ul (4.8-10.8)
[2017-10-04] MEDS: SENNA/DOCUSATE NA (8.6MG/50MG) TAB PO SCH (09:51)
[2017-10-05] MEDS ORDERED: DIPHTH/TET/ACEL PERTUSS (ADULT) 0.5 ML VIAL IM* ONE (09:00)
== END 2017-10-04 16:21 | disposition home or self-care (01) | DRG 775 ==
LOC: L-D 11:43 → PP1 10-03 03:54
PROVIDERS: ADMIT Obstetrics & Gynecology; ATTEND Obstetrics & Gynecology
PROC: 10E0XZZ Delivery of Products of Conception, External Approach (ICD-10-PCS; principal; 2017-10-03)
PROC: 3E033VJ Introduction of Other Hormone into Peripheral Vein, Percutaneous Approach (ICD-10-PCS; 2017-10-03)
DX: O26.62 Liver and biliary tract disorders in childbirth (principal); K83.1 Obstruction of bile duct; E66.01 Morbid (severe) obesity due to excess calories; Z68.34 Body mass index [BMI] 34.0-34.9, adult; O99.214 Obesity complicating childbirth; Z3A.37 37 weeks gestation of pregnancy; Z37.0 Single live birth
CPT/HCPCS: 62319; 85025; 85610; 85730; 86592; 86900; 86901; 87340; J2590; J3010; J7120

== ENCOUNTER 2018-10-15 01:17 | Emergency (ER) | payer OTHER ==
[~2018-10-15] VITALS: Ht 170.2 cm; Wt 94.3 kg
[~2018-10-15 01:17] MED LIST changes: +CALC600T24 PO; +IBUP-1542 PO
[2018-10-15 01:23] VITALS: Ht 170.2 cm; Wt 94.3 kg
[2018-10-15] MEDS ORDERED: ONDANSETRON 4 MG INJ IV STA (02:19)
[2018-10-15] MEDS ORDERED: morphine 4 MG/ML VIAL IV STA (02:19)
[2018-10-15] MEDS ORDERED: SOD CHLORIDE 0.9% 1,000 ML IV STA (02:19)
[2018-10-15] MEDS ORDERED: ONDA8TAB14 PO (04:14)
[2018-10-15] MEDS ORDERED: ACET500C5 PO (04:14)
--- NOTE | 2018-10-15 04:16 | ERD ---
ER Documentation Chief Complaint Chief Complaint woke w/ nausea then vomited x2 +abdominal pain HPI 27-year-old female presents with nausea and upper abdominal pain since this morning. She vomited twice nonbilious nonbloody. She denies any lower abdominal pain, fevers, diarrhea, urinary complaints. She denies . ROS All systems reviewed and are negative except as per history of present illness. Medications Home Meds Active Scripts Acetaminophen* (Tylophen*) 500 Mg Capsule, 1 CAP PO Q6H PRN for PAIN AND OR ELEVATED TEMP, #15 CAP Prov:CHICO RUBIO MD 10/15/18 Ondansetron (Ondansetron Odt) 8 Mg Tab.rapdis, 8 MG PO Q6H PRN for NAUSEA AND/OR VOMITING, #6 TAB Prov:CHICO RUBIO MD 10/15/18 Ibuprofen* (Ibuprofen*) 600 Mg Tablet, 600 MG PO Q6, #30 TAB 0 Refills Prov:SHANTELL NARANJO MD 10/03/17 Reported Medications Calcium Carbonate* (Calcium Carbonate*) 600 MG Ca Tab, 600 MG PO, TAB 10/01/17 Vits W-Ca,Fe,Fa(<1MG) () 1 Tab Tablet, 1 TAB PO 11/19/11 Allergies Allergies: Coded Allergies: sulfamethoxazole (Verified Allergy, Intermediate, 10/01/17) trimethoprim (Verified Allergy, Intermediate, 10/01/17) PMhx/Soc Medical and Surgical Hx: pt denies Medical Hx, pt denies Surgical Hx History of Surgery: No Anesthesia Reaction: No Hx Neurological Disorder: No Hx Respiratory Disorders: No Hx Cardiac Disorders: No Hx Psychiatric Problems: No Hx Alcohol Use: No Hx Substance Use: No Hx Tobacco Use: No Smoking Status: Never smoker FmHx Family History: No diabetes, No coronary disease, No other Physical Exam Vitals Vital Signs Date Temp Pulse Resp B/P (MAP) Pulse Ox O2 O2 Flow FiO2 Time Delivery Rate 10/15/18 97.6 110 20 143/73 96 01:23 (96) Physical Exam Const: No acute distress Head: Atraumatic Eyes: Normal Conjunctiva ENT: Normal External Ears, Nose and Mouth. Neck: Full range of motion. No meningismus. Resp: Clear to auscultation bilaterally Cardio: Regular rate and rhythm, no murmurs Abd: Soft, in the right upper abdomen and epigastric area. No tenderness at McBurney's point. No rebound., non distended. Normal bowel sounds Skin: No petechiae or rashes Back: No midline or flank tenderness Ext: No cyanosis, or edema Neur: Awake and alert Psych: Normal Mood and Affect Result Diagram: 10/15/18 0245 10/15/18 0245 Results 24 hrs Laboratory Tests Test 10/15/18 02:45 10/15/18 03:15 10/15/18 03:25 White Blood Count 11.9 10^3/ul Red Blood Count 5.33 10^6/ul Hemoglobin 15.5 g/dl Hematocrit 46.1 % Mean Corpuscular Volume 86.5 fl Mean Corpuscular Hemoglobin 29.1 pg Mean Corpuscular 33.6 g/dl Hemoglobin Concent Red Cell Distribution Width 12.4 % Platelet Count 253 10^3/UL Mean Platelet Volume 10.8 fl Immature Granulocytes % 0.300 % Neutrophils % 86.3 % Lymphocytes % 8.4 % Monocytes % 3.7 % Eosinophils % 1.1 % Basophils % 0.2 % Nucleated Red Blood Cells % 0.0 /100WBC Immature Granulocytes # 0.030 10^3/ul Neutrophils # 10.3 10^3/ul Lymphocytes # 1.0 10^3/ul Monocytes # 0.4 10^3/ul Eosinophils # 0.1 10^3/ul Basophils # 0.0 10^3/ul Nucleated Red Blood Cells # 0.0 10^3/ul Sodium Level 142 mmol/L Potassium Level 4.1 mmol/L Chloride Level 105 mmol/L Carbon Dioxide Level 27 mmol/L Anion Gap 10 Blood Urea Nitrogen 12 mg/dl Creatinine 0.62 mg/dl Est Glomerular Filtrat > 60 mL/min Rate mL/min Glucose Level 112 mg/dl Calcium Level 9.4 mg/dl Total Bilirubin 0.5 mg/dl Direct Bilirubin 0.00 mg/dl Indirect Bilirubin 0.5 mg/dl Aspartate Amino Transf (AST/SGOT) 19 IU/L Alanine 28 IU/L Aminotransferase (ALT/SGPT) Alkaline Phosphatase 99 IU/L Total Protein 8.0 g/dl Albumin 4.6 g/dl Globulin 3.40 g/dl Albumin/Globulin Ratio 1.35 Lipase 62 U/L Urine Color YELLOW Urine Clarity SLIGHTLY CLOUDY Urine pH 5.0 Urine Specific [place] 1.026 Urine Ketones NEGATIVE mg/dL Urine Nitrite NEGATIVE mg/dL Urine Bilirubin NEGATIVE mg/dL Urine Urobilinogen 1+ mg/dL Urine Leukocyte Esterase NEGATIVE Estrada/ul Urine Microscopic RBC 1 /HPF Urine Microscopic WBC 4 /HPF Urine Squamous Epithelial Cells MODERATE /HPF Urine Bacteria FEW /HPF Urine Mucus MODERATE /HPF Urine Hemoglobin NEGATIVE mg/dL Urine Glucose NEGATIVE mg/dL Urine Total Protein NEGATIVE mg/dl POC Beta HCG, Qualitative NEGATIVE Current Medications Medications Dose Sig/Mika Start Time Status Last (Trade) Ordered Route PRN Stop Time Admin Dose Reason Admin Sodium 1,000 ml @ Q1H STAT 10/15/18 DC 10/15/18 Chloride 1,000 mls/hr IV 02:19 10/15/18 02:53 03:18 Morphine 4 mg ONCE STAT 10/15/18 DC Sulfate IV 02:19 10/15/18 (morphine) 02:20 Ondansetron 4 mg ONCE STAT 10/15/18 DC 10/15/18 HCl (Zofran IV 02:19 10/15/18 02:53 Inj) 02:20 Procedures/MDM CBC shows white blood cell count 11.9, otherwise normal. CMP and lipase normal. HCG negative urine shows no significant acute abnormal findings. Upper quadrant ultrasound shows no acute abnormalities. Patient was given Zofran 4 mill grams IV, morphine 4 mg IV. Patient presents with upper abdominal pain, vomiting starting this evening. She may have early gastrointestinal virus. Current signs or symptoms do not suggest bursitis, hepatobiliary disease and there is no signs or symptoms suggest pneumonia, obstruction, visual emergent causes of presenting complaints. She will be treated empirically with Tylenol, Zofran, return precautions and primary care follow-up. The patient was stable with no new complaints during the ER course. Clinically, there is no current evidence to suggest meningitis, sepsis, acute abdomen, pneumonia, stroke, acute coronary syndrome, pulmonary embolism, aortic dissection or any other emergent condition appearing to require further evaluation or hospitalization. Patient counseled regarding my diagnostic impression and care plan. Prior to discharge all questions answered. Pt agrees with treatment plan and understands strict return precautions. Pt is instructed to follow up with primary care provider within 24-48 hours. Precautionary instructions provided including instructions to return to the ER if not improving or for any worsening or changing symptoms or concerns. Departure Diagnosis: Primary Impression: Abdominal pain Abdominal location: upper abdomen, unspecified Qualified Codes: R10.10 - Upper abdominal pain, unspecified Condition: Stable Patient Instructions: Abdominal Pain Additional Instructions: Examination show no emergent cause of symptoms. May be early stomach virus. Eat bland diet and drink plenty of fluids at home. Recheck for vomiting despite treatment, worsening pain especially in the lower abdomen, new or worsening symptoms. CHICO RUBIO MD Oct 15, 2018 04:16
[2018-10-15 04:59] VITALS: BP 123/59; PULSE 94; RESP 18
== END 2018-10-15 05:13 | disposition home or self-care (01) ==
LOC: FTE 01:17
DX: R10.10 Upper abdominal pain, unspecified (principal); R11.2 Nausea with vomiting, unspecified
CPT/HCPCS: 36415; 76705; 80053; 81001; 81025; 83690; 85025; 96361; 96374; J2405; J7030; Z7502; 81003